=== PATIENT | female | born 1985 | race Caucasian/White ===

== ENCOUNTER 2018-05-11 14:23 | Emergency (ER) | payer OTHER ==
[~2018-05-11] VITALS: Ht 162.6 cm; Wt 61.2 kg
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
[2018-05-11] MEDS ORDERED: ACETAMINOPHEN 650 MG/20.3 ML UDC PO ONE (15:00)
[2018-05-11] MEDS ORDERED: ACETAMINOPHEN 325 MG TABLET ONE (15:04)
--- NOTE | 2018-05-11 15:25 | NUR ---
SEEN AND EVALUATED BY DR LAMAS. D/C HOME IN STABLE CONDITION.
[2018-05-11 15:26] VITALS: BP 125/70
== END 2018-05-11 15:27 | disposition home or self-care (01) ==
LOC: ER 14:24
DX: S06.0X0A Concussion without loss of consciousness, initial encounter (principal); S09.8XXA Other specified injuries of head, initial encounter; V49.09XA Driver injured in collision with other motor vehicles in nontraffic accident, initial encounter; Y93.89 Activity, other specified; Y92.410 Unspecified street and highway as the place of occurrence of the external cause; Y99.8 Other external cause status
CPT/HCPCS: 99283; A4606; Z7610